=== PATIENT | female | born 1975 | race Caucasian/White ===

== ENCOUNTER 2017-05-01 07:10 | Day surgery (SDC) | payer OTHER, BC ==
[~2017-05-01] VITALS: Ht 177.8 cm; Wt 112.0 kg
[~2017-05-01 07:10] MED LIST: DAYPRO600 MG PO
--- NOTE | 2017-05-01 10:04 | NUR ---
PT SEEMS TO BE RESTING,ALERT, ORIENTED AND SUPPORTED BY HER SIG. OTHER. SHE SEEMED PREPARED, DECLINED PRAYER. WILL ZOEYLOW NEEDED
--- NOTE | 2017-05-01 10:25 | NUR ---
05/01/17 1025 Kalpana Ndiaye REPORT FROM PRESIDING JUDGE.
--- NOTE | 2017-05-01 10:56 | NUR ---
PT IS BACK TO DS FROM PACU. SHE IS AWAKE. WATER AND CRACKERS ON THE BEDSIDE TABLE. CALL LIGHT IS WITHIN REACH. PT'S SPOUSE IS AT THE BEDSIDE. NO C/O'S AT THIS TIME. WILL REASSESS WITHIN THE HOUR.
[2017-05-01] MEDS ORDERED: NORCO 5-325 TA1 EACH PO (11:14)
--- NOTE | 2017-05-01 11:51 | NUR ---
LE 1130: PT ASSISTED UP OOB TO THE BATHROOM. SHE IS PAINFUL, BUT ABLE TO WALK WITH STANDBY ASSIST TO THE BATHROOM. SHE IS ABLE TO VOID 150ML OF DARK YELLOW URINE. SHE IS ASSISTED BACK TO BED. PAIN MEDS ARE RETIREVED AND GIVEN.
--- NOTE | 2017-05-01 11:52 | NUR ---
PT IS SITTING UP IN BED. SHE IS TOLERATING PUDDING AND SIPS OF WATER. SHE WAS ABLE TO TAKE 2 PAIN PILLS WITHOUT ISSUE. SPOUSE IS AT THE BEDSIDE. HE IS GOING TO DROP OFF HER RX AT THE PHARMACY. THE PLAN FOR DISCHARGE IS DISCUSSED WITH PT AND SPOUSE--SHE HAS BEEN ABLE TO URINATE, TOLERATE FOOD AND LIQUID, SHE JUST NEEDS TO HAVE HER PAIN UNDER CONTROL THEN SHE CAN DISCHARGE HOME. BOTH VERBALIZE UNDERSTANDING. PT IS ENCOURAGED TO TAKE A NAP.
--- NOTE | 2017-05-01 13:06 | NUR ---
PT IS AWAKE, REPORTS THAT HER PAIN IS AT A MANAGEABLE LEVEL. CALL LIGHT IS WITHIN REACH. SPOUSE IS AT THE BEDSIDE. SHE ATE ALL OF HER PUDDING AND DRANK ALL OF HER WATER. SHE IS REQUESTING TO GET UP AND GO TO THE BATHROOM. NO OTHER C/O'S AT THIS TIME. WILL REASSESS WITHIN THE HOUR.
--- NOTE | 2017-05-01 14:11 | NUR ---
MERARY 1330: PT HAS MET DC CRITERIA AND VERBALIZED THE WANT TO GO HOME. DC INSTRUCTIONS ARE GIVEN VERBALLY TO PT AND SPOUSE, BOTH VERBALIZE UNDERSTANDING AND ASK ANY QUESTIONS THEY HAVE. PT IS EDUCATED ON HOW BEST TO DRESS.
--- NOTE | 2017-05-06 18:42 | OR ---
[facility] [address], [place] [address] Signed DATE OF OPERATION: 05/01/2017 SURGEON: Tyrone Mazariegos MD PREOPERATIVE DIAGNOSIS: Reducible left inguinal hernia. POSTOPERATIVE DIAGNOSIS: Reducible left indirect inguinal hernia. PROCEDURE: Left Tristian onlay mesh inguinal herniorrhaphy. ESTIMATED BLOOD LOSS: None. INDICATIONS: Melissa is a 41-year-old lady who works for a [employer]. She has moderately heavy labor work. She had noticed pain and swelling with a reducible bulge in her left groin. She said about a year ago she was pulling awning out of the back of a truck. She had one on each hand and she felt the pulling and tearing in that left groin. This slowly but surely gotten worse. It is now affecting her ability to function while at work. She came and wanted me to look to see if she had a left inguinal hernia. Her primary care provider had evaluated her as well. In the office, she has a reducible left inguinal hernia. I gave her a booklet on hernias and we looked at that together in detail. She understands the nature of her inguinal hernia along with a difference between the primary suture repair and a mesh repair. She understands expected intraop and postop course. We did review the risks including, but not limited to bleeding, infection, scarring, change in contour of the skin, damage to the nerves, recurrent hernias, and chronic pain. She expressed understanding and wished to proceed. PROCEDURE NOTE: I met with Melissa and her in our preop area. We all agreed it was the left groin and we marked that appropriately. After this, Melissa was taken into our operating room and placed in the supine position under general endotracheal tube anesthesia. She was given preoperative antibiotics along with subcutaneous heparin. SCDs were utilized. After this, she was prepped and draped in the usual sterile fashion. We then made our standard oblique incision in the left groin and carried it down through the tissues bluntly and with the cautery. The external oblique fascia was opened along its length and developed medially and laterally. We immediately encountered her round ligament Electronically Signed By: TYRONE MAZARIEGOS MD 05/06/17 184 PATIENT NAME: MELISSA MANCUSO OPERATIVE REPORT DATE OF : 73 PHYSICIAN: TYRONE MAZARIEGOS MD REPORT #: [id number] REPORT IS CONFIDENTIAL AND NOT TO BE RELEASED WITHOUT AUTHORIZATION [facility] [address], [place] [address] Signed with a [id number] broad-based hernia coming through her deep ring. Her ilioinguinal nerve was dissected free and protected throughout the case. It took a few minutes to separate the round ligament from the surrounding fat as well as the hernia sac. She had quite a bit of fat coming through the deep ring, which we ligated and amputated and passed off the field. We eventually sacrificed the round ligament not only at the deep ring, but just passed the pubic tubercle with the help of an 0 Vicryl tie. The hernia sac was opened and we found the fat was caught in the midportion of the hernia sac. There was a stricture there of the hernia sac, so we opened the wall of the hernia sac and allowed us to reduce the fat completely into the abdominal cavity. The neck of the hernia sac was then suture ligated with a 2-0 PDS suture. The distal portion of the hernia sac was amputated and passed off the field. The ilioinguinal nerve was kept intact. We then cut a piece of flat Prolene mesh to fit her groin and a slit was made in the mesh to accommodate the ilioinguinal nerve. The mesh was held in place medially and laterally with the help of running #1 Prolene suture. We used several interrupted Prolene sutures to help bring the overlap mesh together near the level of the deep ring. Again, no undue tension of the mesh around the nerve. After this, the wound was irrigated and suctioned out until clear. Local anesthetic was copiously injected into the wound. The external oblique fascia was closed over the repair with the help of a running 2-0 PDS suture. Janelle fascia was then reapproximated with a running 3-0 Monocryl suture. The dermis was reapproximated with interrupted 3-0 Monocryl sutures. The skin edges were reapproximated with a running 6-0 fast absorbing plain gut suture. Dry gauze and tape were then applied. Melissa was then awakened from anesthesia, extubated in the OR, taken to recovery room in stable condition. Tyrone Mazariegos MD ALB/MODL /[id number] cc: MD Malika Salguero FNP Electronically Signed By: TYRONE MAZARIEGOS MD 05/06/17 1842 PATIENT NAME: MELISSA MANCUSO OPERATIVE REPORT DATE OF : 73 PHYSICIAN: TYRONE MAZARIEGOS MD REPORT #: [id number] REPORT IS CONFIDENTIAL AND NOT TO BE RELEASED WITHOUT AUTHORIZATION
== END 2017-05-01 13:30 | disposition home or self-care (01) ==
LOC: DS 07:10
PROVIDERS: Colon & Rectal Surgery
PROC: 0YU60JZ Supplement Left Inguinal Region with Synthetic Substitute, Open Approach (ICD-10-PCS; principal; 2017-05-01 08:15)
DX: K40.90 Unilateral inguinal hernia, without obstruction or gangrene, not specified as recurrent (principal); E03.9 Hypothyroidism, unspecified; E11.9 Type 2 diabetes mellitus without complications; F17.210 Nicotine dependence, cigarettes, uncomplicated; Z98.51 Tubal ligation status; Z98.890 Other specified postprocedural states; Z79.899 Other long term (current) drug therapy
CPT/HCPCS: 00830; C1781; J0330; J0690; J1100; J1644; J1885; J2250; J2405; J2704; J3010; J7120